=== PATIENT | female | born 1965 ===

== ENCOUNTER 2017-06-05 17:28 | Emergency (ER) | payer BC ==
--- NOTE | 2017-06-05 18:19 | EDM.PDOC ---
ED HPI GENERAL MEDICAL PROBLEM - General Chief Complaint: General Stated Complaint: knee pain and swelling Time Seen by Provider: 06/05/17 17:30 Source of Information: Reports: Patient History Limitations: Reports: No Limitations - History of Present Illness INITIAL COMMENTS - FREE TEXT/NARRATIVE: According to patient she has been having pain over the medial aspect of the left knee for the past 3 wks. Hurts to walk. Most of the pain is localized to the medial aspect of the knee close to joint line. No trauma or injury. Pt claims that she has fibromyalgia and on amitriptyline and tramadol for it. She is here today as she has noticed some increase in her pain.Pt has not tried any OTC remedies. No calf tenderness. No swelling of the leg. No SOB, cough of wheezing. No fever or chills. Duration: Week(s): (3) Location: Reports: Lower Extremity, Left Quality: Reports: Ache Severity: Moderate Improves with: Reports: None Worsens with: Reports: None Associated Symptoms: Denies: Confusion, Cough, Diaphoresis, Fever/Chills, Loss of Appetite, Malaise, Nausea/Vomiting, Rash, Seizure, Shortness of Breath, Syncope, Weakness - Related Data Allergies Allergy/AdvReac Type Severity Reaction Status Date / Time No Known Allergies Allergy Verified 06/05/17 17:58 ED ROS GENERAL - Review of Systems Review Of Systems: See Below Constitutional: Denies: Fever, Chills, Malaise HEENT: Denies: Rhinitis, Throat Pain, Throat Swelling Respiratory: Denies: Shortness of Breath, Wheezing, Cough, Sputum Cardiovascular: Denies: Chest Pain, Lightheadedness Endocrine: Denies: Fatigue GI/Abdominal: Denies: Abdominal Pain, Nausea, Vomiting : Denies: Dysuria, Flank Pain Musculoskeletal: Reports: Joint Pain. Denies: Hand Pain, Leg Pain, Foot Pain, Joint Swelling, Muscle Stiffness Skin: Reports: Erythema. Denies: Bruising, Pruritis, Rash ED EXAM, GENERAL - Physical Exam Exam: See Below Exam Limited By: No Limitations General Appearance: Alert, WD/WN, No Apparent Distress Eye Exam: Bilateral Eye: EOMI, PERRL Ears: Normal External Exam, Normal Canal, Hearing Grossly Normal, Normal TMs Ear Exam: Bilateral Ear: Auricle Normal, Canal Normal, TM normal Nose: Normal Inspection, Normal Mucosa, No Blood Throat/Mouth: Normal Inspection, Normal Lips, Normal Teeth, Normal Gums, Normal Oropharynx, Normal Voice, No Airway Compromise Head: Atraumatic, Normocephalic Neck: Normal Inspection, Supple, Non-Tender, Full Range of Motion Respiratory/Chest: No Respiratory Distress, Lungs Clear, Normal Breath Sounds, No Accessory Muscle Use, Chest Non-Tender Cardiovascular: Normal Peripheral Pulses, Regular Rate, Rhythm, No Edema, No Gallop, No JVD, No Murmur, No Rub Extremities: Normal Range of Motion, No Pedal Edema, Normal Capillary Refill, Other (left knee: there is mild erythema and swelling over the medail aspect of the knee joint. Normal ROM. Able to weight bear and walk on the knee. Mild valgus strain. ) Neurological: Alert, Oriented, CN II-XII Intact, Normal Cognition, Normal Gait, Normal Reflexes, No Motor/Sensory Deficits Course - Vital Signs Text/Narrative:: Pt's left knee Xray appears normal. No acute abnormality or effusion seen. Pt reassured that she might have strained her left knee joint which has gone unnoticed for a while. I have applied Mohan wrap to the left knee joint. advised intermittent heat to the area of pain. aleve OTC 2 tabs twice daily with foot. Elevation of the leg. IF symptoms not better in 3-4 days advised to followup with her primary care provider for further workup. Last Recorded V/S: Last Vital Signs Temp 98.6 F 06/05/17 17:40 Pulse 75 06/05/17 17:40 Resp 12 06/05/17 17:40 BP 138/80 06/05/17 17:40 Pulse Ox 100 06/05/17 17:40 - Orders/Labs/Meds Orders: Active Orders 24 hr Category Date Time Status Knee 3V Lt [CR] Stat Exams 06/05/17 17:51 Ordered Departure - Departure Time of Disposition: 06:15 Disposition: Home, Self-Care 01 Condition: Fair Clinical Impression: Strain of left knee - Discharge Information Instructions: Knee Pain, Adult Referrals: PCP,None [Primary Care Provider] - Forms: ED Department Discharge Additional Instructions: Take Aleve 2 tablets with food twice daily. Follow up with primary care provider for knee pain. Keep mohan wrap on for 1 week. Use intermittent heat for 15 minutes 3 to 4 times a day. - Problem List & Annotations (1) Strain of left knee SNOMED Code(s): 247871045823 Code(s): S86.912A - STRAIN OF UNSP MUSC/TEND AT LOWER LEG LEVEL, LEFT LEG, INIT Status: Acute - Problem List Review Problem List Initiated/Reviewed/Updated: Yes - My Orders Last 24 Hours: My Active Orders 06/05/17 17:51 Knee 3V Lt [CR] Stat - Assessment/Plan Last 24 Hours: My Active Orders 06/05/17 17:51 Knee 3V Lt [CR] Stat Assessment:: Left knee strain Plan: Pt's left knee Xray appears normal. No acute abnormality or effusion seen. Pt reassured that she might have strained her left knee joint which has gone unnoticed for a while. I have applied Mohan wrap to the left knee joint. advised intermittent heat to the area of pain. aleve OTC 2 tabs twice daily with foot. Elevation of the leg. IF symptoms not better in 3-4 days advised to followup with her primary care provider for further workup.
--- NOTE | 2017-06-07 07:48 | CR ---
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 There is a small joint effusion. No acute fracture or dislocation. No lytic or blastic bone lesions. [id number] [facility]
== END 2017-06-05 18:10 | disposition home or self-care (01) ==
LOC: LB.ED 17:28
DX: S86.812A Strain of other muscle(s) and tendon(s) at lower leg level, left leg, initial encounter (principal); M79.7 Fibromyalgia; Z79.899 Other long term (current) drug therapy; X58.XXXA Exposure to other specified factors, initial encounter
CPT/HCPCS: 73562-LT; 99283